=== PATIENT | female | born 1955 | race Two or more races ===

== ENCOUNTER 2024-11-12 14:46 | Outpatient (AMB) | payer MEDICARE, SELFPAY ==
--- NOTE | 2024-11-12 14:57 | GSCOFFNT_ITS ---
Vital Signs - [facility] 11/12/24 14:58 Height 1.57 m Height Method Stated Weight 76.827 kg Weight Measurement Method Standing Scale BMI 30.9 BP 135/84 H Blood Pressure Source Automatic Cuff Blood Pressure Location Right Upper Arm Position Sitting Respiration 18 Pulse 71 Pulse Source Monitor Temp 97.5 F Temp Source Temporal Artery Scan Pulse Oximetry (%) 98 Oxygen Delivery Method Room Air Med/Allergies Allergies & Medications Allergies No Known Allergies Allergy (Verified 11/12/24 15:13) Medication Reconciliation buspirone 30 mg tablet 30 mg PO BID 11/12/24 [History Confirmed 11/12/24] simvastatin 20 mg tablet 20 mg PO QDAY 11/12/24 [History Confirmed 11/12/24] trazodone 100 mg tablet 100 mg PO QDAY 11/12/24 [History Confirmed 11/12/24] MA Intake Visit Data Collection New Patient or Established: Established Patient (seen at [facility] within 3 years) Reason for Visit:: HERNIA Pain Present Currently: Yes Pain Location: Groin Pain scale:: 9 (COMES & GOES) Pain Scale Used: Diaz-Garcia/Numerical Pediatric Physician Assistant Required: Yes PCP or OBGYN visit in last 3 months: Yes Hx Now: No Do You Feel Safe at Home: Yes Authorities Contacted: N/A Smoking Status Smoking Status: Never smoker Immunization / Flu Flu Vaccine in the Last 12 Months: No Flu Vaccine Exclusion Criteria: No Exclusion Criteria Past Medical History Past Medical History NEUROLOGIC: Negative Neurological Disorders or Seizures CARDIAC: Positive Cardiac Disorders and Hypercholesterolemia; Negative Congestive Heart Failure RESPIRATORY: Negative Chronic Obstructive Pulmonary Disease (COPD) GASTROINTESTINAL: Positive Gastrointestinal Disorders (constipation) GENITOURINARY: Negative Genitourinary Disorders or Renal Disease MUSCULOSKELETAL: Negative Musculoskeletal Disorders ENDOCRINE: Negative Endocrine Disorders, Diabetes Mellitus Type 1 or Diabetes Mellitus Type 2 HEMATOLOGIC: Negative Blood Disorders OTHER HISTORY: Negative Autoimmune Disease, Blood Transfusions or Anesthesia Reactions Family History FAMILY HISTORY: Negative Family Psychiatric Problems, Family Respiratory Disorders, Family Cardiac Disorders, Family Gastrointestinal Problems, Family Cancer, Family Surgery or Family Anesthesia Reaction Surgical History SURGICAL: Positive Hysterectomy Social History SMOKING STATUS: Smoking status: Never smoker ALCOHOL: Alcohol Intake: Current HOUSING: Housing: House Travel Risk Travel Hx Recent Travel: No HPI HPI Narrative Spoke to patient with in person instructional assistant 69F with HLD referred for right groin swelling. Patient reports she has noted this swelling for years, it seems to have grown a bit in size and causes discomfort, especially with movement. Patient denies any history of the area feeling hard and any history of nausea/vomiting associated with it. PMH: HLD, back pain PSH: Hysterectomy Meds: Buspirone, simvastatin, trazodone Allergies: NKDA Social history: Non-smoker Family history: No known malignancy ROS Review of Systems Systems Reviewed: All systems reviewed, normal except as documented Objective/Exam General General Appearance: alert, cooperative and well groomed Resp Respiratory exam: Absent respiratory distress External exam: Present other (right groin protuberant lesion inferior to the inguinal ligament, soft with minimal tenderness and no overlying skin changes, no movement when pt coughs. No obvious inguinal hernia and no left-sided hernia) Assessment & Plan Diagnosis / Problem List (1) Swelling of inguinal region: Status: Acute Assessment & Plan: 69F presenting with painful right groin swelling which may represent a subcutaneous lesion vs a femoral hernia. I explained with an instructional assistant that imaging would help distinguish between the two and would guide surgical treatment. Patient expressed understanding and is agreeable to following up after CT Orders: Orders CT pelvis w con 1 Week R19.09 - Other intra-abdominal and pelvic swelling, mass and lump Advanced Care Planning Advance care planning discussed with:: patient Office Procedures GNS Level of Care Nursing/Assessment Patient Status: Established Patient Nursing Assessment/Reassesment: Medication Reconciliation, Update PMH in EMR and Vital Signs Coordination of Care: Complex Care and Chronic Disease 1-5, Education Complex Pt/Fam, Consent,records obtained, informed consent, 1 Ins Authorization, Lab and Imaging orders, Results/Orders obtained and Staff clarify orders Special Needs: Language special needs Established Patient Charge Established Patient Point Assignment: 125 Established Patient Point Charge: EP Level 4 (120-155) Patient Portal Questionaires Social History Living Situation History Housing: House Tobacco History Smoking Status: Never smoker Alcohol History Alcohol Intake: Current Domestic Abuse History Do You Feel Safe at Home: Yes Review of Systems Report any current symptoms Only answer those that you have currently: Past Medical History Past Medical History Have you ever been diagnosed with any of the following: Neurological Problems Seizures: No Cardiology Problems Hypercholesterolemia: Yes Congestive Heart Failure: No Respiratory Problems Chronic Obstructive Pulmonary Disease (COPD): No Genital/Urinary Problems Renal Disease: No Endocrine Problems Diabetes Mellitus Type 1: No Diabetes Mellitus Type 2: No Other Problems Autoimmune Disease: No Blood Transfusions: No Anesthesia Reactions: No Surgical History Hysterectomy: Yes
[2024-11-12 14:58] VITALS: BP 135/84; PULSE 71; RESP 18; TEMP 36.4; O2SAT 98; BMI 30.9
== END 2024-11-12 15:09 | disposition home or self-care (01) ==
LOC: HODSRG 14:46
PROVIDERS: PCP Internal Medicine; Referring Provider Internal Medicine; Supervising Provider Surgery; Visit Provider Surgery
DX: R19.09 Other intra-abdominal and pelvic swelling, mass and lump (principal)
CPT/HCPCS: 99214; G0463

== ENCOUNTER → 2025-01-15 | Outpatient (CLI) | payer MEDICARE, SELFPAY ==
--- NOTE | 2025-01-15 14:09 | XR_ITS ---
Examination: Lumbar spine 2 views Technique one AP lateral upright lumbar spine 2 views Exam date and time: January 15, 2025 1528 hours Comparison March 05, 2020 INDICATIONS: Postop cervical fusion January 02, 2025 FINDINGS: Transpedicular lumbar fusion L2-L4 with satisfactory alignment No lumbar fracture Moderate osteopenia IMPRESSION: Transpedicular lumbar fusion L2-L4 with satisfactory alignment
== END | disposition home or self-care (01) ==
LOC: CDIM 13:42
PROVIDERS: Referring Provider Orthopaedic Surgery; Visit Provider Orthopaedic Surgery
DX: M43.26 Fusion of spine, lumbar region (principal)
CPT/HCPCS: 72100

== ENCOUNTER → 2025-02-01 | Outpatient (CLI) | payer MEDICARE, SELFPAY | END | disposition home or self-care (01) | LOC: SLDO 15:27 | PROVIDERS: PCP Internal Medicine; Referring Provider Internal Medicine; Visit Provider Internal Medicine | DX: N39.0 Urinary tract infection, site not specified (principal) | CPT/HCPCS: 87086 ==

== ENCOUNTER → 2025-02-15 | Outpatient (CLI) | payer MEDICARE, SELFPAY ==
[2025-02-15 15:56] LABS: Collection Type, Urine Clean Catch
[2025-02-15 16:43] LABS: Bilirubin,Urine Negative (Negative); Blood,Urine 2+ (Negative); Color,Urine Lt-Yellow (Lt Yel-Yel); Glucose, Urine Negative (Negative); Ketones,Urine Negative (Negative); Leukocyte Esterase,Urine Positive (Negative); Nitrite,Urine Negative (Negative); Protein,Urine Trace (Neg - Trace); RBC,Urine 22 /hpf (0-3); Specific Gravity,Urine 1.015 (1.001-1.035); Squamous Epithelial Cell,Urine 1 /hpf (0-5); Urobilinogen,Urine Negative mg/dL (0.0-1.0); WBC,Urine 402 /hpf (0-5)
[2025-02-15 17:06] LABS: Clarity,Urine Hazy (Clear/Hazy)
== END | disposition home or self-care (01) ==
LOC: SLDO 15:44
PROVIDERS: PCP Student in an Organized Health Care Education/Training Program; Referring Provider Student in an Organized Health Care Education/Training Program; Visit Provider Student in an Organized Health Care Education/Training Program
DX: N39.0 Urinary tract infection, site not specified (principal)
CPT/HCPCS: 81001; 87077; 87086; 87186

== ENCOUNTER → 2025-02-28 | Outpatient (CLI) | payer MEDICARE, SELFPAY ==
--- NOTE | 2025-02-28 10:28 | XR_ITS ---
Examination: Lumbar spine 3 views Technique one AP lateral coned lateral lower lumbar spine 3 views Exam date and time: February 28, 2025 1151 hours Comparison January 15, 2025 INDICATIONS: Back surgery 07 January 2025 history chronic back pain years. FINDINGS: Transpedicular lumbar fusion L2-L4 with anatomic alignment Mild to moderate degenerative disc disease above the fusion site L2-L3 No lumbar fracture IMPRESSION: Mild to moderate degenerative disc disease above the fusion site, L2-L3
== END | disposition home or self-care (01) ==
LOC: CDIM 09:38
PROVIDERS: PCP Internal Medicine; Referring Provider Orthopaedic Surgery; Visit Provider Orthopaedic Surgery
DX: M51.360 Other intervertebral disc degeneration, lumbar region with discogenic back pain only (principal); M43.26 Fusion of spine, lumbar region
CPT/HCPCS: 72100

== ENCOUNTER → 2025-03-06 | Outpatient (CLI) | payer MEDICARE, SELFPAY ==
[2025-03-06 14:33] LABS: Collection Type, Urine Clean Catch
[2025-03-06 15:32] LABS: Bilirubin,Urine Negative (Negative); Blood,Urine 2+ (Negative); Color,Urine Yellow (Lt Yel-Yel); Glucose, Urine Negative (Negative); Ketones,Urine Negative (Negative); Leukocyte Esterase,Urine Positive (Negative); Nitrite,Urine Negative (Negative); PH,Urine 5.5 (5.0-7.0); Protein,Urine 1+ (Neg - Trace); RBC,Urine 87 /hpf (0-3); Specific Gravity,Urine 1.026 (1.001-1.035); Squamous Epithelial Cell,Urine 1 /hpf (0-5); Urobilinogen,Urine Negative mg/dL (0.0-1.0); WBC,Urine 1414 /hpf (0-5)
[2025-03-06 15:39] LABS: Clarity,Urine Turbid (Clear/Hazy)
== END | disposition home or self-care (01) ==
LOC: SLDO 14:28
PROVIDERS: Referring Provider Student in an Organized Health Care Education/Training Program; Visit Provider Student in an Organized Health Care Education/Training Program
DX: N39.0 Urinary tract infection, site not specified (principal)
CPT/HCPCS: 81001; 87077; 87086; 87186

== ENCOUNTER → 2025-03-22 | Outpatient (CLI) | payer MEDICARE, SELFPAY ==
--- NOTE | 2025-03-22 11:00 | XR_ITS ---
Examination: Screening digital mammography, bilateral Computer aided detection 3-D breast Tomosynthesis, bilateral Date and time of exam: March 22, 2025 10:34 AM Compared to mammograms dating to June 17, 2019 Indication: Screening Technique: Nonmagnified MLO, CC views of the breasts to been obtained, reconstructed from 3-D Tomosynthesis images. R2 computer aided detection program utilized for evaluation of suspicious masses and/or abnormal calcifications. 3-D Tomosynthesis images obtained. Findings: Scattered areas of fibroglandular density. Benign calcifications. No interval suspicious masses Impression: BI-RADS category II: Benign Findings. Recommend 1 year follow-up mammogram.
[2025-03-22 14:33] LABS: Collection Type, Urine Clean Catch
[2025-03-22 16:02] LABS: Bilirubin,Urine Negative (Negative); Blood,Urine Negative (Negative); Clarity,Urine Clear (Clear/Hazy); Color,Urine Lt-Yellow (Lt Yel-Yel); Glucose, Urine Negative (Negative); Ketones,Urine Negative (Negative); Leukocyte Esterase,Urine Positive (Negative); Nitrite,Urine Negative (Negative); Protein,Urine Negative (Neg - Trace); RBC,Urine < 1 /hpf (0-3); Specific Gravity,Urine 1.012 (1.001-1.035); Squamous Epithelial Cell,Urine < 1 /hpf (0-5); Urobilinogen,Urine Negative mg/dL (0.0-1.0); WBC,Urine 32 /hpf (0-5)
== END | disposition home or self-care (01) ==
LOC: CDIM 14:28 → SLDO 14:36
PROVIDERS: Referring Provider Student in an Organized Health Care Education/Training Program; Visit Provider Radiology Diagnostic Radiology
DX: Z12.31 Encounter for screening mammogram for malignant neoplasm of breast (principal); R92.8 Other abnormal and inconclusive findings on diagnostic imaging of breast; R92.323 Mammographic fibroglandular density, bilateral breasts; N39.0 Urinary tract infection, site not specified
CPT/HCPCS: 77063; 77067; 81001; 87077; 87086; 87186

== ENCOUNTER 2025-06-30 21:16 | Emergency (ER) | payer MEDICARE, SELFPAY ==
[2025-06-30 21:17] VITALS: BMI 33.2
[2025-06-30 21:20] VITALS: BP 168/96; PULSE 87; RESP 18; TEMP 36.6; O2SAT 98
--- NOTE | 2025-06-30 21:47 | PD.EDFMALE ---
ED Female Urogenital RME/HPI General Chief complaint: Urogenital-Female Stated complaint: PAIN AND BURING WITH URINATION Time Seen by Provider: 06/30/25 21:21 Arrival date/time: 06/30/25 21:16 This is a 70-year-old female that comes into the emergency room with complaints of dysuria oliguria and urinary frequency that started today. Patient states she has had a UTI before and it feels like UTI. Patient states she is nauseous but has not had a vomiting episode. Patient denies any past medical history. Related Data Home Medications ?Medication ?Instructions ?Recorded ?Confirmed buspirone 30 mg tablet 30 mg PO BID 11/12/24 11/12/24 simvastatin 20 mg tablet 20 mg PO QDAY 11/12/24 11/12/24 trazodone 100 mg tablet 100 mg PO QDAY 11/12/24 11/12/24 Previous Rx's ?Medication ?Instructions ?Recorded ibuprofen 800 mg tablet 800 mg PO Q6H #14 tabs 06/30/25 Allergies Allergy/AdvReac Type Severity Reaction Status Date / Time No Known Allergies Allergy Verified 06/30/25 21:17 Review of Systems Review of Systems Systems Reviewed: All systems reviewed, normal except as documented Past Medical History Past Medical History NEUROLOGIC: Negative Neurological Disorders or Seizures CARDIAC: Positive Cardiac Disorders and Hypercholesterolemia; Negative Congestive Heart Failure RESPIRATORY: Negative Chronic Obstructive Pulmonary Disease (COPD) GASTROINTESTINAL: Positive Gastrointestinal Disorders (constipation) GENITOURINARY: Negative Genitourinary Disorders or Renal Disease MUSCULOSKELETAL: Negative Musculoskeletal Disorders ENDOCRINE: Negative Endocrine Disorders, Diabetes Mellitus Type 1 or Diabetes Mellitus Type 2 HEMATOLOGIC: Negative Blood Disorders OTHER HISTORY: Negative Autoimmune Disease, Blood Transfusions or Anesthesia Reactions Family History FAMILY HISTORY: Negative Family Psychiatric Problems, Family Respiratory Disorders, Family Cardiac Disorders, Family Gastrointestinal Problems, Family Cancer, Family Surgery or Family Anesthesia Reaction Surgical History SURGICAL: Positive Hysterectomy Social History SMOKING STATUS: Never smoker ED Exam Narrative Physical exam: VITAL SIGNS: Reviewed. GENERAL APPEARANCE: Alert and interactive, follows commands, no acute distress HEAD AND FACE: Non-traumatic. ENT: PERRL, conjuctiva pink and clear, eyelid no trauma, Mucous membrane moist. NECK: Supple, nontender, no nuchal rigidity. CHEST: No tenderness, no crepitus, no paradoxical movement, no retractions. LUNGS: breathing even and unlabored HEART: Regular rate, cap refill less than 2 seconds ABDOMEN: Soft, nondistended, no guarding, nontender, no rebound, no masses, NEUROLOGICAL: Gross motor function intact sensory function intact, Appropriate for age. MUSCULOSKELETAL: low back nontender, full range of motion. EXTREMITIES: No redness no swelling no skin breakdown on bilateral foot and leg. Distal neurovascular status intact bilateral foot SKIN: Color pink, dry, no rash, no lacerations, no abrasions, no contusions. Course Quality Measures none Orders Category Date Time Status Urinalysis, C/S if Indicated Stat Lab 06/30/25 21:49 Completed Urine Culture Stat Lab 06/30/25 21:49 Completed Ibuprofen Tab [Motrin Tab] Med 06/30/25 21:41 Discontinued 800 mg PO X1 ONE Ondansetron Odt [Zofran Odt] Med 06/30/25 21:41 Discontinued 4 mg PO X1 ONE cefTRIAXone [Rocephin] 1,000 mg Med 06/30/25 23:05 Discontinued Lidocaine 1% 20 ml [Xylocaine 1% 20 ML] 2.1 ml IM X1 Vital Signs Vital signs: Vital Signs Temperature 98 F 06/30/25 21:20 Pulse Rate 87 06/30/25 21:20 Respiratory Rate 18 06/30/25 21:20 Blood Pressure 168/96 H 06/30/25 21:20 Pulse Oximetry (%) 98 06/30/25 21:20 Oxygen Delivery Method Room Air 06/30/25 21:20 Urogenital - Female MDM Narrative MDM Narrative:: Pt urine + uti. Will send for culture. Pt given ibuprofen, zofran and rocephin. Pt told to follow up with pmd in 1-2 days. Come back to ED if symptoms change or worsen. Patient data External records reviewed:: [facility] previous records Clinical information provided by:: patient Social determinants that could affect healthcare access:: none Patient has the following chronic illnesses:: none How is presenting disease/condition affected by chronic disease/condition?: no chronic disease Evaluation data The following diagnostics were reviewed and interpreted by me:: lab results Lab and/or radiology exams considered but not ordered:: none Interpretation Summary: see note Medications / Prescriptions Medications or Prescriptions considered but not ordered:: none Medication administrations:: Medication Administration History Discontinued Medications Ceftriaxone Sodium 1,000 mg/ (Lidocaine HCl 2.1 ml) 0 mg IM X1 ONE Stop: 06/30/25 23:06 Last Admin: 06/30/25 23:16 Dose: 1,000 mg Documented By: FABI Ibuprofen (Ibuprofen Tab 400 Mg Tablet) 800 mg PO X1 ONE Stop: 06/30/25 21:42 Last Admin: 06/30/25 22:08 Dose: 800 mg Documented By: FABI Ondansetron HCl (Ondansetron Odt 4 Mg Tabrap) 4 mg PO X1 ONE; Protocol Stop: 06/30/25 21:42 Last Admin: 06/30/25 22:09 Dose: 4 mg Documented By: FABI see mar Consultations Consultation(s) initiated? (list below): No Diagnosis Urogenital Female Differential Diagnosis: urinary tract infection, cystitis and other (pyelonepphritis) Most likely diagnosis given after review of the tests above:: uti Admission Indicated Admission indicated?: not indicated Admission Request Was there a request for admission?: No Disposition Plan Disposition Plan: Discharge Discharge Attestation Discharge Attestation: The patient and all family members were given an opportunity to ask questions and understood the discharge instructions. Discharge instructions specifically effects, indications for sooner follow up or return to the emergency department, and the expected course of current diagnosis. Patient condition: Stable Discharge Plan Plan Patient Disposition: HOME (Self Care) Patient condition on transfer: Stable Prescriptions/Referrals Prescriptions/Med Rec: New ibuprofen 800 mg tablet 800 mg PO Q6H Qty: 14 0RF No Action buspirone 30 mg tablet 30 mg PO BID simvastatin 20 mg tablet 20 mg PO QDAY trazodone 100 mg tablet 100 mg PO QDAY Referrals: Leonard Galvez [Primary Care Provider] - In 1 week Problem List Clinical Impression: Urinary tract infection Patient/Caregiver Discharge Instructions Discharge Activity: activity as tolerated Education Materials: ED CYSTITIS Female Adult Additional Instructions: Follow up with primary provider in 1-2 days. Come back to ED if symptoms change or worsen Print Language: Yi Stand Alone Forms: Stephenie Award Info., Patient Portal Info Letter PA/HARP ACTION ASSEMBLER Supervising Physician PA/HARP ACTION ASSEMBLER Supervising Physician: jose
[2025-06-30 21:59] LABS: Collection Type, Urine Voided; Squamous Epithelial Cell,Urine 0 /hpf (0-5)
[2025-06-30] MEDS: IBUPROFEN TAB 400 MG TABLET 800 MG PO (22:08)
[2025-06-30] MEDS: ONDANSETRON ODT 4 MG TABRAP PO (22:09)
[2025-06-30 23:00] LABS: Bacteria,Urine Rare; Bilirubin,Urine Negative (Negative); Blood,Urine 1+ (Negative); Clarity,Urine Clear (Clear/Hazy); Color,Urine Colorless (Lt Yel-Yel); Culture Indicated,Urine Yes; Glucose, Urine Negative (Negative); Ketones,Urine Negative (Negative); Leukocyte Esterase,Urine Positive (Negative); Nitrite,Urine Negative (Negative); PH,Urine 6.5 (5.0-7.0); Protein,Urine Negative (Neg - Trace); RBC,Urine 3 /hpf (0-3); Specific Gravity,Urine 1.004 (1.001-1.035); Urobilinogen,Urine Negative mg/dL (0.0-1.0); WBC,Urine 40 /hpf (0-5)
[2025-06-30] MEDS: cefTRIAXone 1,000 MG, LIDOCAINE 1% 20 ML 2.1 ML IM (23:16)
== END 2025-06-30 23:23 | disposition home or self-care (01) ==
PROVIDERS: Nurse Practitioner Family; Emergency Provider Emergency Medicine; PCP Internal Medicine
DX: N39.0 Urinary tract infection, site not specified (principal)
CPT/HCPCS: 81001; 87086; 96372; 99283; J0696; J3490; Q0162; A9270

== ENCOUNTER → 2025-07-02 | Outpatient (CLI) | payer MEDICARE, SELFPAY ==
--- NOTE | 2025-07-02 08:20 | XR_ITS ---
Examination: Lumbar spine 3 views TECHNIQUE: Standing AP lateral coned lateral lower lumbar spine 3 views Date and time: July 02, 2025 0828 hours, comparison February 28, 2025. INDICATIONS: Low back pain, post lumbar spine surgery December 2024. FINDINGS: Transpedicular lumbar stabilization L2-L4 with anatomic alignment No lumbar fracture Intact pedicles IMPRESSION: Transpedicular lumbar stabilization L2-L4 with anatomic alignment
== END | disposition home or self-care (01) ==
LOC: CDIM 08:06
PROVIDERS: PCP Internal Medicine; Referring Provider Orthopaedic Surgery; Visit Provider Orthopaedic Surgery
DX: M51.16 Intervertebral disc disorders with radiculopathy, lumbar region (principal); Z98.890 Other specified postprocedural states
CPT/HCPCS: 72100

== ENCOUNTER → 2025-07-12 | Outpatient (CLI) | payer MEDICARE, SELFPAY ==
[2025-07-12 14:42] LABS: Collection Type, Urine Clean Catch; RBC,Urine 0 /hpf (0-3)
[2025-07-12 16:18] LABS: Bacteria,Urine Rare; Bilirubin,Urine Negative (Negative); Blood,Urine Negative (Negative); Clarity,Urine Clear (Clear/Hazy); Color,Urine Lt-Yellow (Lt Yel-Yel); Glucose, Urine Negative (Negative); Ketones,Urine Negative (Negative); Leukocyte Esterase,Urine Positive (Negative); Nitrite,Urine Negative (Negative); PH,Urine 5.5 (5.0-7.0); Protein,Urine Negative (Neg - Trace); Specific Gravity,Urine 1.018 (1.001-1.035); Squamous Epithelial Cell,Urine 4 /hpf (0-5); Urobilinogen,Urine Negative mg/dL (0.0-1.0); WBC,Urine 12 /hpf (0-5)
== END | disposition home or self-care (01) ==
LOC: SLDO 14:35
PROVIDERS: PCP Nurse Practitioner Family; Referring Provider Nurse Practitioner Family; Visit Provider Nurse Practitioner Family
DX: N39.0 Urinary tract infection, site not specified (principal)
CPT/HCPCS: 81001; 87077; 87086; 87186

== ENCOUNTER → 2025-07-24 | Outpatient (CLI) | payer MEDICARE, SELFPAY | END | disposition home or self-care (01) | LOC: SLDO 14:57 | PROVIDERS: PCP Student in an Organized Health Care Education/Training Program; Referring Provider Student in an Organized Health Care Education/Training Program; Visit Provider Student in an Organized Health Care Education/Training Program | DX: N39.0 Urinary tract infection, site not specified (principal) | CPT/HCPCS: 87077; 87086; 87186 ==

== ENCOUNTER → 2025-10-28 | Outpatient (CLI) | payer MEDICARE, SELFPAY ==
[2025-10-28 08:39] LABS: Basophils # (Auto) 0.1 Thou/mm3 (0.0-0.2); Basophils % (Auto) 1 % (0-2.5); Eosinophils # (Auto) 0.2 Thou/mm3 (0.0-0.5); Eosinophils % (Auto) 4 % (0-10); Hematocrit 40.6 % (36.0-46.0); Hemoglobin 13.6 g/dL (12.0-16.0); Immature Granulocytes Auto 0.01 Thou/mm3 (0.00-0.00); Lymphocytes # (Auto) 2.2 Thou/mm3 (1.0-4.8); Lymphocytes % (Auto) 38 % (10-50); Mean Corpuscular HGB Conc 33.5 g/dl (31.0-37.0); Mean Corpuscular Hemoglobin 29.6 pg (25.0-35.0); Mean Corpuscular Volume 88 fL (80-100); Monocytes # (Auto) 0.3 Thou/mm3 (0.0-0.8); Monocytes % (Auto) 5 % (0-12); Neutrophils # (Auto) 3.0 Thou/mm3 (1.8-7.7); Neutrophils % (Auto) 51 % (37-80); Nucleated Red Blood Cell # 0.00 Thou/mm3 (0.00-0.00); Nucleated Red Blood Cell % 0 /100 WBC (0); Platelet Count 215 Thou/mm3 (140-440); RDW Standard Deviation 42.1 fL (36.4-46.3); Red Blood Count 4.60 Miln/mm3 (4.00-5.20); White Blood Count 5.8 Thou/mm3 (3.6-11.0)
[2025-10-28 08:50] LABS: Alanine Aminotransferase 17 U/L (10-49); Albumin, Serum 4.3 gm/dL (3.4-4.8); Albumin/Globulin Ratio 1.7 (1.2-2.2); Alkaline Phosphatase 82 U/L (46-116); Anion Gap 9 (7-16); Aspartate Amino Transferase 20 U/L (0-34); BUN/Creatinine Ratio 11 Ratio (12-20); Bilirubin,Total 0.5 mg/dL (0.3-1.2); Blood Urea Nitrogen 10 mg/dL (9-23); Calcium 9.1 mg/dL (8.3-10.6); Calcium (Corrected) 9.1 mg/dL (8.5-10.1); Carbon Dioxide 29.5 mMol/L (20.0-31.0); Cardiac Risk Estimate 3.5 RATIO (3.7-5.6); Chloride 108 mMol/L (98-107); Cholesterol 138 mg/dL (132-200); Creatinine (Component) 0.9 mg/dL (0.6-1.3); Globulin 2.6 gm/dL (2.3-3.5); Glucose 103 mg/dL (74-106); HDL Cholesterol 39 mg/dL (40-60); LDL Cholesterol,Calculated 74 mg/dL (0-130); Osmolality,Calculated 289 (275-295); Potassium 4.5 mMol/L (3.4-5.1); Sodium 146 mMol/L (136-145); Thyroid Stimulating Hormone 3.25 uIU/mL (0.55-4.78); Total Protein 6.9 gm/dL (5.7-8.2); Triglycerides 127 mg/dL (30-150); eGFR > 60 See Note
[2025-10-28 09:25] LABS: Glucose Estimated Average 105 mg/dL (80-131); Hemoglobin A1C 5.3 % Hgb (4.8-6.0)
== END | disposition home or self-care (01) ==
LOC: COPL 07:42
PROVIDERS: PCP Internal Medicine; Referring Provider Internal Medicine; Visit Provider Internal Medicine
DX: E78.5 Hyperlipidemia, unspecified (principal); F41.8 Other specified anxiety disorders; G47.00 Insomnia, unspecified
CPT/HCPCS: 36415; 80053; 80061; 83036; 84443; 85025